=== PATIENT | male | born 1990 | race Caucasian/White ===

== ENCOUNTER 2017-11-07 23:17 | Emergency (ER) | payer SELFPAY ==
[~2017-11-07] VITALS: Ht 175.3 cm; Wt 81.6 kg
[2017-11-07 23:26] VITALS: BP 143/84
--- NOTE | 2017-11-08 00:10 | NUR ---
PT AMBULATED TO CHAIR D
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
[2017-11-08 02:10] VITALS: BP 143/84
--- NOTE | 2017-11-08 02:10 | NUR ---
Patient discharged with v/s stable and decerased. Written and verbal after care instructions given and explained. Patient alert, oriented and verbalized understanding of instructions. Ambulatory with steady gait. All questions addressed prior to discharge. ID band removed. Patient advised to follow up with PMD. Rx of Ibuprofen given. Patient educated on indication of medication including possible reaction and side effects. Opportunity to ask questions provided and answered.
== END 2017-11-08 02:10 | disposition home or self-care (01) ==
LOC: MED 23:17
DX: S02.2XXA Fracture of nasal bones, initial encounter for closed fracture (principal); W22.8XXA Striking against or struck by other objects, initial encounter; Y93.89 Activity, other specified; Y92.89 Other specified places as the place of occurrence of the external cause; Y99.8 Other external cause status
CPT/HCPCS: 70160; 99284